=== PATIENT | male | born 1990 | race Caucasian/White ===

== ENCOUNTER 2017-05-04 23:50 | Emergency (ER) | payer MEDICARE, MEDICAID ==
[~2017-05-04] VITALS: Ht 185.4 cm; Wt 105.5 kg
[~2017-05-04 23:50] MED LIST: LORA0.5T PO; ZOLP10TA PO
[2017-05-05] MEDS ORDERED: POLOS EACHEYE (04:10)
[2017-05-05] MEDS ORDERED: NEOM10DR45 OT (04:10)
[2017-05-05 04:15] VITALS: BP 113/70
== END 2017-05-05 04:19 | disposition home or self-care (01) ==
LOC: ER 23:51
DX: H60.503 Unspecified acute noninfective otitis externa, bilateral (principal); H10.9 Unspecified conjunctivitis; J45.909 Unspecified asthma, uncomplicated; Z88.0 Allergy status to penicillin; Z88.1 Allergy status to other antibiotic agents
CPT/HCPCS: 99283

== ENCOUNTER 2018-06-02 20:10 | Emergency (ER) | payer MEDICARE, MEDICAID ==
[~2018-06-02] VITALS: Ht 185.4 cm; Wt 106.8 kg
[2018-06-02 20:12] VITALS: BP 124/74
[2018-06-02] MEDS ORDERED: LIDOcaine 1% w/epiNEPHrine 1:200,000 30ml vial IM ONE ×2 (21:10→21:15)
[2018-06-02] MEDS ORDERED: TETanus/Pertussis (Acell)/Diphther VAC/PF (Tdap-Adult) 0.5ml syringe IM ONE (21:10)
[2018-06-02] MEDS ORDERED: DOXY100C43 PO (21:25)
== END 2018-06-02 22:50 | disposition home or self-care (01) ==
LOC: ER 20:11
DX: S01.21XA Laceration without foreign body of nose, initial encounter (principal); J45.909 Unspecified asthma, uncomplicated; Z56.0 Unemployment, unspecified; Z88.1 Allergy status to other antibiotic agents; Z88.0 Allergy status to penicillin; Z88.8 Allergy status to other drugs, medicaments and biological substances; W55.03XA Scratched by cat, initial encounter; Y93.89 Activity, other specified; Y92.89 Other specified places as the place of occurrence of the external cause; Y99.8 Other external cause status
CPT/HCPCS: 12013; 90471; 90715; 99283; J3490

== ENCOUNTER 2018-06-06 22:36 | Emergency (ER) | payer MEDICARE, MEDICAID ==
[~2018-06-06] VITALS: Ht 185.4 cm; Wt 88.1 kg
[~2018-06-06 22:36] MED LIST changes: +DOXY100C43 PO
[2018-06-06 22:41] VITALS: BP 120/74
--- NOTE | 2018-06-06 22:41 | NUR ---
NS moistened 4x4s placed over suture.
--- NOTE | 2018-06-06 23:30 | NUR ---
Per vidal Tomas to remove suture. Skin cleaned, suture removed, abx ointment applied; PTW.
== END 2018-06-06 23:35 | disposition home or self-care (01) ==
LOC: ER 22:37
DX: S01.21XD Laceration without foreign body of nose, subsequent encounter (principal); J45.909 Unspecified asthma, uncomplicated; Z88.0 Allergy status to penicillin; Z88.1 Allergy status to other antibiotic agents; Z79.899 Other long term (current) drug therapy; Z56.0 Unemployment, unspecified; W55.03XD Scratched by cat, subsequent encounter
CPT/HCPCS: 99282

== ENCOUNTER 2020-09-15 11:19 | Emergency (ER) | payer MEDICARE, MEDICAID ==
[~2020-09-15] VITALS: Ht 185.4 cm; Wt 108.6 kg
[~2020-09-15 11:19] MED LIST changes: -DOXY100C43 PO
[2020-09-15] MEDS ORDERED: LIDOcaine 1% W/epiNEPHrine 1:200,000 10ml vial IJ ONE (11:55)
[2020-09-15 13:22] VITALS: BP 129/78
== END 2020-09-15 13:22 | disposition home or self-care (01) ==
LOC: ER 11:20
DX: S61.212A Laceration without foreign body of right middle finger without damage to nail, initial encounter (principal); J45.909 Unspecified asthma, uncomplicated; F41.9 Anxiety disorder, unspecified; F32.9 Major depressive disorder, single episode, unspecified; Z86.19 Personal history of other infectious and parasitic diseases; Z72.89 Other problems related to lifestyle; Z56.0 Unemployment, unspecified; Z88.0 Allergy status to penicillin; Z88.1 Allergy status to other antibiotic agents; Z88.8 Allergy status to other drugs, medicaments and biological substances; Z79.899 Other long term (current) drug therapy; X58.XXXA Exposure to other specified factors, initial encounter; Y93.89 Activity, other specified; Y92.89 Other specified places as the place of occurrence of the external cause; Y99.8 Other external cause status
CPT/HCPCS: 12001; 99282

== ENCOUNTER 2021-11-25 16:26 | Emergency (ER) | payer MEDICARE, MEDICAID ==
[~2021-11-25] VITALS: Ht 185.4 cm; Wt 111.4 kg
[2021-11-25 16:56] VITALS: BP 143/89
[2021-11-25] MEDS ORDERED: BETA15CR4 TOP (19:14)
[2021-11-25] MEDS ORDERED: MUPI22OI30 TOP (19:14)
== END 2021-11-25 19:32 | disposition home or self-care (01) ==
LOC: ER 16:26
DX: L01.1 Impetiginization of other dermatoses (principal); L30.9 Dermatitis, unspecified
CPT/HCPCS: 99283